=== PATIENT | female | born 1995 | race Caucasian/White ===

== ENCOUNTER 2016-09-01 19:51 | Emergency (ER) | payer OTHER ==
[~2016-09-01] VITALS: Ht 165.1 cm; Wt 61.6 kg
[2016-09-01 19:56] VITALS: TEMP 36.8; Ht 165.1 cm; Wt 61.6 kg
[2016-09-01 21:00] VITALS: BP 120/64; PULSE 67; O2SAT 99
[2016-09-01] MEDS ORDERED: CEPHALEXIN 500MG HOME PACK 1 EA BTL PO ONE (21:00)
[2016-09-01] MEDS ORDERED: CEPH500C2 PO (21:00)
--- NOTE | 2016-09-03 10:07 | EMERGENCY ROOM VISIT NOTE ---
ED Visit Note First contact with patient: 20:07 CHIEF COMPLAINT: My right middle finger is infected. HISTORY OF PRESENT ILLNESS: Ms. Schofield is an 21-year-old white female who ambulates into the ED accompanied by female friend complaining of a right middle finger infection. Patient reports she noted some pain and redness of the distal phalanx of the right middle finger yesterday. She reports she had a friend with a similar appearing finger and was told that it was an infection. She allowed her friend to use a needle to puncture her cuticle area and she reports there was some drainage of pus like material. Earlier today she was seen at [facility] and was told there was indeed an infection in her finger and was prescribed Bactrim. Since that time she is taken 2 doses of her Bactrim and reports she is not having any relief of her discomfort and has not seen any improvement in the redness or pain. Currently she describes the pain in her finger as a throbbing sensation. She rates her discomfort 7/10. Her pain is rating proximately in towards the DIP and PIP joints. She has not identified any alleviating factors related to the pain. Her pain worsens with palpation of the distal finger. She has not had any medications for pain prior to arrival at the hospital. Associated with her pain she has noticed redness throughout the distal phalanxes of the finger and reports a numbness sensation over the palmar aspect of the finger. She denies fevers, chills, sweats, upper respiratory tract symptoms, shortness of breath, chest discomfort, decreased appetite, nausea, vomiting, precipitating injury before the pain/redness/swelling, red streaking. REVIEW OF SYSTEMS: As noted above in History of Present Illness. PAST MEDICAL HISTORY: Status post rhinoplasty and wisdom teeth extraction. CURRENT MEDICATION: Patient denies. ALLERGIES TO MEDICATION: Patient denies. SOCIAL HISTORY: Patient is currently a university student; she feels safe in her home environment; she denies alcohol use and admits to tobacco use. PHYSICAL EXAM: Vital Signs: Date Time Temp Pulse Resp B/P Pulse Ox O2 Delivery O2 Flow Rate FiO2 09/01/16 21:00 67 20 120/64 99 Room Air 09/01/16 19:56 36.8 80 18 125/77 97 Room Air General: 21 year-old white female in mild acute distress, nontoxic appearing, afebrile and hemodynamically stable. Neurological: Awake, alert and oriented to person, place and time. Answering questions appropriately and following commands. Skin: Warm, dry and pink. Right Index Finger: The distal phalanx is indurated but not fluctuant circumferentially. Around the cuticle area there is mild consistent changes skin color with a pocket of purulent material. I did palpate this area and once again it did not feel fluctuant. There was no pointing or drainage. No lymphangitis. Thorax: Lungs sounds are clear to auscultation and equal bilaterally with symmetrical chest wall movement. No wheezing, rales or rhonchi. No increased respiratory effort. Abdomen: Flat, soft and nontender. Positive bowel sounds in all quadrants. No guarding or rigidity. ED COURSE: Patient is assessed as noted above. I did inform the patient that I did not feel an I&D procedure well and producing much results and the conservative approach would be continuing with the antibiotics and/or prescribing a second antibiotic for a broader coverage of bacteria. She requested that I at least try an I&D procedure and was amenable to the addition of a second antibiotic. Incision and Drainage: Location: Verbal consent was obtained after the risks and benefits were explained. The skin was prepped with betadine and a sterile field set. The area surrounding the abscess was anesthetized with ethyl chloride. The abscess cavity was incised with a scalpel. No purulent material was drained from the abscess. Copious irrigation was performed using sterile saline. Hemostasis was achieved. A sterile dressing was applied. No complications and the patient tolerated the procedure well. Patient was educated about his condition and instructed on his treatment plan; they verbalized understanding and agreement with this plan. CLINICAL IMPRESSION: Paronychia of the right middle finger. DISPOSITION: Patient discharged to home in stable condition accompanied by female friends; prior to departure she was reassessed and subjectively reported she was feeling slightly better. PLAN: Patient was encouraged to continue her current antibiotics as prescribed until complete. Patient was encouraged to alternate ibuprofen and acetaminophen as needed for pain. Patient was prescribed Keflex 500 mg 4 times a day for 10 days. Patient was encouraged to follow-up at [facility] or return to the ED for recheck in 36-48 hours. Patient was encouraged to return to the ED sooner for any signs of worsening infection or any new/concerning symptoms.
== END 2016-09-01 21:19 | disposition home or self-care (01) ==
LOC: EDSEX 19:53 → C.EDB 19:53 → C.EDD 21:19
DX: L03.011 Cellulitis of right finger (principal); Z72.0 Tobacco use; Z98.818 Other dental procedure status; Z98.890 Other specified postprocedural states